=== PATIENT | female | born 1965 | race American Indian/Alaskan Native ===

== ENCOUNTER 2016-12-31 21:22 | Observation (INO) | payer OTHER ==
[2016-12-31 21:45] VITALS: BMI 40.4
[2016-12-31 22:57] LABS: ADD MANUAL DIFF? NO
--- NOTE | 2016-12-31 22:57 | ED PDOC ---
Arrival/HPI - General Chief Complaint: Back Pain Time Seen by Provider: 12/31/16 22:10 Historian: Patient - History of Present Illness Narrative History of Present Illness (Text): 12/31/16 22:54 51 year old female whose past medical history includes back injury in 2004 presents to the Emergency department complaining of some mild upper back discomfort, generalized aches, and difficulty speaking. Patient notes labored speech and inability to express herself as she normally does. She denies history of focal weakness, headache, dizziness, chest pain, shortness of breath , fever, or chills. Time/Duration: 24 hours Symptom Onset: Gradual Symptom Course: Unchanged Activities at Onset: Rest Past Medical History - Provider Review Nursing Documentation Reviewed: Yes - Infectious Disease Hx of Infectious Diseases: None - Tetanus Immunization Tetanus Immunization: Unknown - Cardiac Hx Cardiac Disorders: No - Pulmonary Hx Respiratory Disorders: No - Neurological Hx Neurological Disorder: No - HEENT Hx HEENT Disorder: No - Renal Hx Renal Disorder: No - Endocrine/Metabolic Hx Endocrine Disorders: Yes Hx Diabetes Mellitus Type 2: Yes - Hematological/Oncological Hx Blood Disorders: No - Integumentary Hx Dermatological Disorder: No - Musculoskeletal/Rheumatological Hx Musculoskeletal Disorders: No - Gastrointestinal Hx Gastrointestinal Disorders: No - Genitourinary/Gynecological Hx Genitourinary Disorders: No - Psychiatric Hx Psychophysiologic Disorder: No Hx Substance Use: No - Surgical History Hx Musculoskeletal Surgery: Yes (lower back surgery) Hx Orthopedic Surgery: Yes Hx Tubal Ligation: Yes Other/Comment: "cyst removed from pancreas". head trauma 2004 - Anesthesia Hx Anesthesia: Yes Hx Anesthesia Reactions: No - Suicidal Assessment Feels Threatened In Home Enviroment: No Family/Social History - Physician Review Nursing Documentation Reviewed: Yes Family/Social History: Unknown Family HX Smoking Status: Current Some Days Smoker Hx Alcohol Use: No Hx Substance Use: No Allergies/Home Meds Allergies/Adverse Reactions: Allergies No Known Allergies Allergy (Verified 12/31/16 21:46) Home Medications: Home Meds Medication Instructions Recorded Confirmed Meloxicam [Meloxicam] 7.5 mg PO DAILY 12/31/16 12/31/16 Review of Systems - Physician Review All systems were reviewed & negative as marked: Yes - Review of Systems Constitutional: absent: Fevers, Other (no chills) Respiratory: absent: SOB Cardiovascular: absent: Chest Pain Musculoskeletal: Other (+back discomfort; +generalized aches) Neurological: Other (+difficulty speaking). absent: Headache, Dizziness, Focal Weakness Physical Exam Vital Signs Reviewed: Yes Vital Signs Temp Pulse Resp BP Pulse Ox 01/01/17 01:35 98.1 F 84 16 143/88 98 12/31/16 21:50 97.7 F 95 H 14 126/82 98 Temperature: Afebrile Blood Pressure: Normal Pulse: Regular Respiratory Rate: Normal Appearance: Positive for: Well-Appearing, Non-Toxic, Comfortable Pain Distress: None Mental Status: Positive for: Alert and Oriented X 3 - Systems Exam Head: Present: Atraumatic, Normocephalic Pupils: Present: PERRL Extroacular Muscles: Present: EOMI Conjunctiva: Present: Normal Mouth: Present: Moist Mucous Membranes Neck: Present: Normal Range of Motion Respiratory/Chest: Present: Clear to Auscultation, Good Air Exchange. No: Respiratory Distress, Accessory Muscle Use, Wheezes, Rales, Rhonchi Cardiovascular: Present: Regular Rate and Rhythm, Normal S1, S2. No: Murmurs, Gallop, Muffled Abdomen: Present: Normal Bowel Sounds. No: Tenderness, Distention, Peritoneal Signs, Rebound, Guarding Back: Present: Normal Inspection Upper Extremity: Present: Normal Inspection. No: Cyanosis, Edema Lower Extremity: Present: Normal Inspection. No: Edema Neurological: Present: GCS=15, CN II-XII Intact, Other (+mild expressive dysarthria) Skin: Present: Warm, Dry, Normal Color. No: Rashes Psychiatric: Present: Alert, Oriented x 3, Normal Insight, Normal Concentration Medical Decision Making ED Course and Treatment: 12/31/16 23:00 Impression: 51 year old female complaining of back discomfort, generalized aches, and difficulty speaking. Physical exam revealed mild expressive dysarthria Plan: --CT Head --EKG --CXR --Labs -- Reassess and disposition Prior Visits: Notes and results from previous visits were reviewed. Progress Notes: 12/31/16 22:30 Code stroke called at 22:36 12/31/16 23:[address] Singh who states patient not a candidate for tPA. 12/31/16 23:41 EXAM:CT Head Without Intravenous Contrast Dictated and Authenticated by: Talya Foster MD FINDINGS: Brain: Unremarkable. No hemorrhage. No significant white matter disease. No edema. Ventricles: Unremarkable. No ventriculomegaly. Bones/joints: Unremarkable. No acute fracture. Soft tissues: Unremarkable. Sinuses: Unremarkable as visualized. No acute sinusitis. Mastoid air cells: Unremarkable as visualized. No mastoid effusion. Other findings: No acute findings. IMPRESSION: No acute findings. 01/01/17 03:[address] Contrersa who accepts patient to her service. - Lab Interpretations Lab Results: 12/31/16 22:50 12/31/16 22:50 Lab Results 12/31/16 22:50: WBC 7.4, RBC 4.88, Hgb 13.4, Hct 39.4, MCV 80.7, MCH 27.5, MCHC 34.0, RDW 15.4 H, Plt Count 280, MPV 11.3 H, Gran % 60.7, Lymph % (Auto) 27.2, [place] % (Auto) 8.6 H, Eos % (Auto) 3.2, Baso % (Auto) 0.3, Gran # 4.52, Lymph # 2.0, [place] # 0.6, Eos # 0.2, Baso # 0.02, PT 10.7, INR 0.99, APTT 27.4, Sodium 138, Potassium 4.4, Chloride 105, Carbon Dioxide 29, Anion Gap 8 L, BUN 22 H, Creatinine 0.8, Est GFR ( Amer) > 60, Est GFR (Non-Af Amer) > 60, Random Glucose 116 H, Calcium 9.4, Total Bilirubin 0.5, AST 25, ALT 35, Alkaline Phosphatase 100, Troponin I < 0.01, Total Protein 7.6, Albumin 3.8, Globulin 3.8 , Albumin/Globulin Ratio 1.0 L, Triglycerides 442 H, Cholesterol 350 H, LDL Cholesterol Direct 68, HDL Cholesterol 45 12/31/16 01:20: Blood Type A POSITIVE, Antibody Screen Negative, BBK History Checked No verified bt I have reviewed the lab results: Yes - RAD Interpretation Radiology Orders: 12/31/16 22:26 HEAD W/O (CODE STROKE) [CT] Stat CHEST ONE VIEW [RAD] Stat - Medication Orders Current Medication Orders: Discontinued Medications Aspirin (Aspirin) 325 mg PO ONCE STA Stop: 12/31/16 23:40 Last Admin: 12/31/16 23:54 Dose: 325 MG NIHSS Scale ([place]) Time Performed: 22:15 - How Severe is the Stoke Baseline Level of Consciousness: 0=Alert LOC to Questions: 0=Both comments correct LOC to commands: 0=Obeys both correctly Best Gaze: 0=Normal Visual: 0=No visual loss Facial: 0=Normal Motor Arm - Left: 0=No drift Motor Arm - Right: 0=No drift Motor Leg - Left: 0=No drift Motor Leg - Right: 0=No drift Limb Ataxia: 0=Absent Sensory: 0=Normal Best Language: 0=No aphasia Dysarthia: 1=Mild to moderate slurring Extinction & Inattention (Neglect): 0=Normal, no object Score: 1 Risk Level: Minor Stroke Risk rTPA Inclusion/Exclusion - Refusal of Treatment Patient Refused Treatment: No - Inclusion Criteria for Altepase Patient is 18 years or Older: Yes The Clinical Diagnosis of Ischemic Stroke That is Causing a Potentially Disabling Neurological Deficit: No Time of Onset is Well Established to be Less Than 270 Minute Before Treatment Would Begin: No Risk/Benefit Discussed With Patient/Family Member Present: Yes - Exclusion Criteria for Altepase Uncontrolled Hypertension at Time of Treatment (Systolic BP above 185 or Diastolic BP above 110 mmHg): No Active Internal Bleeding: No Known Bleeding Diathesis Including but Not Limited to: Platelets Below 100,000/ mm,PTT Above 40 sec After Heparin Use, Current Use of Oral Anitcoagulant With INR Greater Than 1.7 or PT Greater Than 15 secs: No Evidence of an Intracranial Hemorrhage: No Evidence of Major Acute Infarct With Signs Greater Than 1/3 MCA Territory: No Suspicion of Subarachnoid Hemorrhage on Pretreatment Evaluation Even if CT Head Negative For Hemorrhage: No - Warning to TPA With Conditions Following Conditions Weighed Against Anticipated Benefit: No Condition: Stroke Serevity Too Mild, Rapid Improvement - Scribe Statement The provider has reviewed the documentation as recorded by the Anthony Davila Provider Scribe Attestation: All medical record entries made by the Scribe were at my direction and personally dictated by me. I have reviewed the chart and agree that the record accurately reflects my personal performance of the history, physical exam, medical decision making, and the department course for this patient. I have also personally directed, reviewed, and agree with the discharge instructions and disposition. Disposition/Present on Arrival - Present on Arrival Any Indicators Present on Arrival: No History of DVT/PE: No History of Uncontrolled Diabetes: No Urinary Catheter: No History of Decub. Ulcer: No History Surgical Site Infection Following: None - Disposition Have Diagnosis and Disposition been Completed?: Yes Diagnosis: TIA (transient ischemic attack) Disposition: HOSPITALIZED Disposition Time: 01:10 Patient Plan: Observation Patient Problems: Current Active Problems Problem Status Diagnosed TIA (transient ischemic attack) Acute Condition: GOOD
[2016-12-31 23:04] LABS: BASO # 0.02 K/mm3 (0.0-2.0); BASO % 0.3 % (0.0-3.0); EOS # 0.2 (0.0-0.7); EOS % 3.2 % (1.5-5.0); GRAN # 4.52 (1.4-6.5); GRAN % 60.7 % (50.0-68.0); HEMATOCRIT 39.4 % (36.0-48.0); LYMPH % 27.2 % (22.0-35.0); MEAN CELL VOLUME 80.7 fL (80.0-105.0); MEAN CORPUSCULAR HEMOGLOBIN 27.5 pg (25.0-35.0); MEAN PLATELET VOLUME 11.3 fl (7.0-11.0); MONO # 0.6 (0.1-0.6); MONO % 8.6 % (1.0-6.0); PLATELET COUNT 280 10^3/uL (120.0-450.0); RED CELL DISTRIBUTION WIDTH 15.4 % (11.5-14.5); WHITE BLOOD COUNT 7.4 10^3/ul (4.5-11.0)
[2016-12-31 23:15] LABS: INR 0.99 (0.93-1.08); PARTIAL THROMBOPLASTIN TIME 27.4 Seconds (23.7-30.8)
[2016-12-31 23:16] LABS: ALKALINE PHOSPHATASE 100 U/L (38-133); ALT/SGPT 35 U/L (7-56); AST/SGOT 25 U/L (15-39); BILIRUBIN,TOTAL 0.5 mg/dL (0.2-1.3); BLOOD UREA NITROGEN 22 mg/dL (7-21); CALCIUM 9.4 mg/dL (8.4-10.5); CARBON DIOXIDE 29 mmol/L (21-33); CHLORIDE 105 mmol/L (98-107); GFR AFRICAN-AMERICAN > 60; GLUCOSE,RANDOM 116 mg/dL (70-110); POTASSIUM 4.4 mmol/L (3.6-5.0); SODIUM 138 mmol/L (132-148); TOTAL PROTEIN 7.6 g/dL (5.8-8.3)
[2016-12-31 23:26] LABS: CHOLESTEROL 350 mg/dL (130-200); TROPONIN I < 0.01 ng/mL
[2017-01-01 04:09] VITALS: RESP 18
[2017-01-01 08:06] VITALS: O2SAT 99
--- NOTE | 2017-01-01 12:46 | CARD ---
APPROVED REPORT EKG Measurement Heart [id number] <Conclusion> Normal sinus rhythm Normal ECG
--- NOTE | 2017-01-01 12:50 | CT ---
PROCEDURE: CT HEAD WITHOUT CONTRAST. HISTORY: Code Stroke COMPARISON: None available. TECHNIQUE: Axial computed tomography images were obtained through the head/brain without intravenous contrast. Intravenous contrast dose: 100 cc of Omnipaque This CT exam was performed using one or more of the following dose reduction techniques: Automated exposure control, adjustment of the mA and/or kV according to patient size, and/or use of iterative reconstruction technique Radiation dose: Total exam DLP = 853 mGy-cm. FINDINGS: HEMORRHAGE: No intracranial hemorrhage. BRAIN: No mass effect or edema. No atrophy or chronic microvascular ischemic changes. VENTRICLES: Unremarkable. No hydrocephalus. CALVARIUM: Unremarkable. PARANASAL SINUSES: Unremarkable as visualized. No significant inflammatory changes. MASTOID AIR CELLS: Unremarkable as visualized. No inflammatory changes. OTHER FINDINGS: None. IMPRESSION: Normal CT of the Head.
[2017-01-01 12:54] VITALS: BP 150/85; PULSE 79; TEMP 98.2
--- NOTE | 2017-01-01 13:16 | RAD ---
PROCEDURE: CHEST RADIOGRAPH, 1 VIEW HISTORY: medical clearance COMPARISON: None available. FINDINGS: LUNGS: Clear. PLEURA: No pneumothorax or pleural fluid seen. CARDIOVASCULAR: Normal. OSSEOUS STRUCTURES: No significant abnormalities. VISUALIZED UPPER ABDOMEN: Normal. OTHER FINDINGS: None. IMPRESSION: No active disease.
--- NOTE | 2017-01-01 13:22 | CP.PCM.PN ---
Subjective - Date & Time of Evaluation Date of Evaluation: 01/01/17 Time of Evaluation: 12:52 - Subjective Subjective: Patient was admitted for back discomfort,generalised aches and difficulty expressing herself. She has decided to sign out AMA for personal reasons. Her Vital signs are stable ans she is ambulatory. She does not want any further examinations,tests or any treatment at this time, states she will follow up with her PMD on Tuesday. She was told of risks of leaving AMA,namely worsening of current symptoms,stroke , even . Patient states she understands,still wants to leave AMA. She was advised to return to the ER if needed. Time spent with pt : 25 mins Objective - Vital Signs/Intake and Output Vital Signs (last 24 hours): Temp Pulse Resp BP Pulse Ox 97.8 F 89 18 117/60 99 01/01/17 10:54 01/01/17 06:00 01/01/17 04:00 01/01/17 04:00 01/01/17 04:00 - Medications Medications: Current Medications Acetaminophen (Tylenol 325mg Tab) 650 mg PO Q4H PRN PRN Reason: pain fever Last Admin: 01/01/17 10:54 Dose: 650 mg Aspirin (Ecotrin) 81 mg PO DAILY [facility] Last Admin: 01/01/17 10:51 Dose: 81 mg Atorvastatin Calcium (Lipitor) 20 mg PO DIN [facility] Famotidine (Pepcid) 40 mg PO HS [facility] Fenofibrate (Tricor) 145 mg PO DAILY [facility] Last Admin: 01/01/17 10:51 Dose: 145 mg - Labs Labs: PT 10.7 Seconds (9.9-11.8) 12/31/16 22:50 INR 0.99 (0.93-1.08) 12/31/16 22:50 APTT 27.4 Seconds (23.7-30.8) 12/31/16 22:50
--- NOTE | 2017-01-01 20:08 | HP ---
CHIEF COMPLAINT: Back pain. HISTORY OF PRESENT ILLNESS: A 51-year-old female with past medical history of back pain in 2004, cam e to the Emergency Room complaining about some mild upper back discomfort, generalized aches and diff iculty in speaking. The patient noticed labored speech and inability to express herself as she shital nugent does. She denies history of focal weakness, headache, dizziness, chest pain, shortness of breath , fever or chills. No hematuria, no hematochezia. I saw the patient in the telemetry. PAST MEDICAL HISTORY: Diabetes mellitus type 2, lower back surgery, history of tubal ligation, cyst removed from the pancreas, head trauma in 2004. FAMILY HISTORY: Father and mother noncontributory. HABITS: Currently smoking. No alcohol, no substance abuse. ALLERGIES: The patient is not allergic with any medications. HOME MEDICATIONS: Meloxicam. REVIEW OF SYSTEMS: The patient seen and examined on the bedside in the telemetry, looks comfortable. No fever, no chills. No nausea, vomiting, diarrhea. No hematuria, no hematochezia. No swelling o f the legs. No chest pain, no palpitation. PHYSICAL EXAMINATION: VITAL SIGNS: Temperature 98.2, pulse 79, blood pressure 150/85, respiratory rate 18. HEENT: Head normocephalic, atraumatic. Eyes: PERRLA. Extraocular muscles intact. Conjunctivae pi nk. Eyelids unremarkable. Nose patent. Mucous membranes moist. NECK: Supple. No carotid bruit, no JVD, no thyromegaly. CHEST: Bilaterally symmetrical. HEART: S1 and S2 positive. LUNGS: Clear to auscultation. ABDOMEN: Soft. Bowel sounds positive. No organomegaly. EXTREMITIES: No edema, no cyanosis. NEUROLOGIC: The patient is awake, alert, moving all 4 extremities. No focal deficits. LABORATORIES: White blood cells 7.4, hemoglobin 13.4, hematocrit 39.4, platelets 280. Sodium 138, p otassium 4.4, BUN 22, creatinine 0.8, glucose 116. Triglyceride 442, cholesterol 350. ASSESSMENT AND PLAN: The patient is a 51-year-old lady with hyperglycemia, hypercholesterolemia, hyp ertriglyceridemia. Came with change of status. Did CAT scan of the head, showed normal CAT scan of the head. Chest x-ray and EKG reviewed. History of hypertension, history of accident, back pain, di abetes mellitus as per patient, history of lower back surgery, tubal ligation, was admitted, transien t ischemic attack. Neurology consult called with Dr. Singh. The patient was given aspirin, Lipitor 20, Pepcid 40, Tricor 145. Discussion done with the patient. Needs physical therapy. We will wait for Dr. Singh's input. Gastrointestinal and deep venous thrombosis prophylaxis. We will follow up . Luz Contreras MD cc: [id number] TT: 01/01/2017 20:08:44 en
--- NOTE | 2017-01-02 10:23 | DS ---
The patient is a 51-year-old female. The patient was admitted on 12/31/2016, left against medical advice on 01/01/2017. The patient was seen by me engineering tech today and then patient decided to go home against medical advice. Dr. Deanna Moreno was called as a house physician to talk to the patient. Dr. Moreno talked to the patient. The patient decided to go against medical advice for personal reason. Her vitals were stable. The patient was ambulatory , eating, drinking, not want further examination, testing or treatment. She was explained she should be seen at least by the neurologist, but she said she has a teenager daughter at home. She had to go home, patient go against medical advice. Education done that she has to see her primary care physician because her cholesterol and triglycerides are very high and in case if condition is worsened, go to Emergency Room. She can have stroke or she can even . The patient understands. Still, she left against medical advice. Luz Contreras MD cc: [id number] TT: 01/02/2017 10:23:09 en MTDD
== END 2017-01-01 15:58 | disposition left against medical advice (07) ==
LOC: ED 21:22 → ERH 01-01 01:10 → 2RNO 01-01 01:52
PROVIDERS: ADMIT Internal Medicine; ATTEND Internal Medicine
DX: G45.9 Transient cerebral ischemic attack, unspecified (principal); E11.65 Type 2 diabetes mellitus with hyperglycemia; E78.00 Pure hypercholesterolemia, unspecified; E78.1 Pure hyperglyceridemia; I10 Essential (primary) hypertension; F17.200 Nicotine dependence, unspecified, uncomplicated; Z86.73 Personal history of transient ischemic attack (TIA), and cerebral infarction without residual deficits; Z98.51 Tubal ligation status
CPT/HCPCS: 70450; 71010; 80053; 80061; 83036; 84484; 85025; 85610; 85730; 86850; 86900; 93005; 99282; G0378